=== PATIENT | male | born 1935 | race Caucasian/White ===

== ENCOUNTER 2017-01-09 02:29 | Emergency (ER) | payer OTHER, MEDICARE ==
[~2017-01-09] VITALS: Ht 172.7 cm; Wt 87.5 kg
[~2017-01-09 02:29] MED LIST: ASPIR 8181 MG PO; AVODART0.5 MG PO; COENZYME Q10 50 MG PO; FISH OIL CONC1000 MG PO; FLOMAX(MONOGRA0.4 MG PO; LIPITOR 40MG40 MG PO; LISINOPRIL30 MG PO; METFORMIN HYD1000 MG PO; PANTOPRAZOLE SO40 MG PO; TENORMIN 50MG T50 MG PO; VITAMIN B COMPL1 CAP PO; VITAMIN B121000 MCG PO; VITAMIN D31000 IU; ZETIA10 MG PO
--- NOTE | 2017-01-09 02:44 | ED GI/GU/ABDOMINAL COMPLAINT ---
History of Present Illness General Chief Complaint: Abdominal Pain/Flank Pain Stated Complaint: ABD PAIN,DIARRHEA Source: patient, family, old records Exam Limitations: no limitations Vital Signs & Intake/Output Vital Signs & Intake/Output Vital Signs Date Time Temp Pulse Resp B/P B/P Pulse O2 O2 Flow FiO2 Mean Ox Delivery Rate 01/09 0239 96.2 77 18 147/69 97 Room Air Allergies Coded Allergies: No Known Allergies (01/09/17) Reconcile Medications Aspirin (Ecotrin) 81 MG TABLET.DR 1 TAB PO DAILY HEART HEALTH (Reported) Atenolol (Tenormin 50MG Tab) 50 MG TABLET 0.5 TAB PO BID HEART (Reported) Atorvastatin (Atorvastatin Calcium) 20 MG TABLET 1 TAB PO DAILY CHOLESTEROL ( Reported) Cholecalciferol (Vitamin D3) (Unknown Strength) TAB (Unknown Dose) DAILY SUPPLEMENT (Reported) Coenzyme Q10/Vitamin E (Co-Q-10 50 MG-1 Iu) 1 SGL SGL 3 SGL PO QAM SUPPLEMENT (Reported) Cyanocobalamin (Vitamin B12) (Unknown Strength) TAB (Unknown Dose) PO ONCE A WEEK SUPPLEMENT (Reported) Dutasteride (Avodart) 0.5 MG CAPSULE 1 CAP PO QPM PROSTATE (Reported) Ezetimibe (Zetia) 10 MG TAB 1 TAB PO QAM CHOLESTEROL (Reported) Fish Oil (Fish Oil Concentrate) 1,000 MG SGL 1 SGL PO BID SUPPLEMENT ( Reported) Lisinopril 30 MG TAB 1 TAB PO DAILY BP (Reported) METFORMIN HCL (Metformin Hydrochloride) 1,000 MG TABLET 1 TAB PO BID DIABETES (Reported) Pantoprazole Sodium 40 MG TABLET.DR 1 TAB PO DAILY AC BARRETTS (Reported) Tamsulosin Hydrochloride (Flomax) 0.4 MG CAP.ER.24H 1 CAP PO QPM PROSTATE ( Reported) Vitamin B Complex 1 EACH CAPSULE 1 CAP PO DAILY SUPPLEMENT (Reported) Triage Note: TRIAGE: PATIENT REPORTS "UNCONTROLLED DIARRHEA SINCE SATURDAY, WORST LAST NIGHT." REPORTS TAKING LOMOTIL W/O RELIEF, DENIES TAKING ABX RECENTLY. DENIES N/V/D/ABD PAIN. REPORTING GOOD APPETITE. Triage Nurses Notes Reviewed? yes HPI: Patient states that he has been having diarrhea since Saturday night. Patient states he is on multiple times. Patient states that he gets the urge to go and only a little bit comes out. There is been no blood in his stool. There is no abdominal pain or abdominal cramping. There is no nausea or vomiting. He has not been on antibiotics recently. There are no fevers or chills. Patient states that he took Lomotil and Imodium without relief. Past History Travel History Traveled to [place] past 21 day No Medical History Any Pertinent Medical History? see below for history Neurological: NONE EENT: NONE Cardiovascular: CAD, hypertension, hyperlipidemia Respiratory: NONE Gastrointestinal: GERD, BARRETS SYNDROME Hepatic: NONE Renal: NONE Musculoskeletal: NONE Psychiatric: NONE Endocrine: diabetes Blood Disorders: NONE Cancer(s): NONE INCIDENT RESPONSE ENGINEER/Reproductive: ENLARGED PROSTATE Surgical History Surgical History: CABG Psychosocial History What is your primary language [place]an Tobacco Use: Quit >30 days ago ETOH Use: denies use Illicit Drug Use: denies illicit drug use Family History Hx Contributory? No Review of Systems Review of Systems Constitutional: Reports: no symptoms. EENTM: Reports: no symptoms. Respiratory: Reports: no symptoms. Cardiovascular: Reports: no symptoms. GI: Reports: see HPI, diarrhea. Genitourinary: Reports: no symptoms. Musculoskeletal: Reports: no symptoms. Skin: Reports: no symptoms. Neurological/Psychological: Reports: no symptoms. Hematologic/Endocrine: Reports: no symptoms. Immunologic/Allergic: Reports: no symptoms. All Other Systems: Reviewed and Negative Physical Exam Physical Exam General Appearance: well developed/nourished, alert, awake, anxious, mild distress Head: atraumatic, normal appearance Eyes: Bilateral: PERRL, EOMI. Ears, Nose, Throat, Mouth: hearing grossly normal, DRY MUCOSA Neck: normal inspection, supple, full range of motion Respiratory: normal breath sounds, chest non-tender, no respiratory distress, lungs clear Cardiovascular: regular rate/rhythm, normal peripheral pulses Gastrointestinal: normal bowel sounds, soft, non-tender, no organomegaly Back: normal inspection Extremities: normal range of motion Neurologic/Psych: no motor/sensory deficits, awake, alert, oriented x 3, normal mood/affect Skin: intact, normal color, warm/dry Core Measures ACS in differential dx? No Severe Sepsis Present: No Septic Shock Present: No Progress Differential Diagnosis: diverticulitis, C.DIFF, COLITIS, DIARRHEA Plan of Care: Orders Procedure Date/time Status C.DIFFICILE 01/10 244 Active COMPREHENSIVE METABOLIC PANEL 01/10 244 Complete CBC WITHOUT DIFFERENTIAL 01/10 244 Complete Laboratory Tests 01/09/17 0250: Anion Gap 13, Estimated GFR > 60, BUN/Creatinine Ratio 22.2, Glucose 112 H, Calcium 8.7, Total Bilirubin 0.4, AST 31, ALT 42, Alkaline Phosphatase 46, Total Protein 6.7, Albumin 3.9, Globulin 2.8, Albumin/Globulin Ratio 1.4, CBC w Diff NO MAN DIFF REQ, RBC 4.19 L, MCV 96.4 H, MCH 31.5 H, RDW 13.0, MPV 8.1, Gran % 54.2, Lymphocytes % 29.5, Monocytes % 11.1 H, Eosinophils % 4.7, Basophils % 0.5, Absolute Granulocytes 5.2, Absolute Lymphocytes 2.8, Absolute Monocytes 1.1 H, Absolute Eosinophils 0.5, Absolute Basophils 0, PUBS MCHC 32.7 L Microbiology 01/09 0244 STOOL: Clostridium difficile Toxin A & B - ORD Diagnostic Imaging: Viewed by Me: CT Scan. Discussed w/RAD: CT Scan. Radiology Impression: PATIENT: KATIE ASHLEY PRESENT AGE: 81 PATIENT ACCOUNT NO: [id number] : 35 LOCATION: [facility] ([facility] ORDERING PHYSICIAN: REANNA TILLMAN MD SERVICE DATE: 01/09/17 EXAM TYPE: CAT - CT ABD & PELVIS W IV CONTRAST EXAMINATION: CT ABDOMEN AND PELVIS WITH CONTRAST CLINICAL INFORMATION: Area COMPARISON: None TECHNIQUE: Multidetector volumetric imaging was performed of the abdomen and pelvis after the IV administration of 95 mL of Optiray 320 intravenous contrast. Sagittal and coronal reformatted images were obtained on the technologist's workstation. DLP: 456 mGy-cm FINDINGS: LUNG BASES: The lung bases are clear. Coronary artery calcifications are present. LIVER, GALLBLADDER, AND BILIARY TREE: The liver is normal in size, shape, and attenuation. No focal hepatic lesion or biliary ductal dilatation is present. The gallbladder is unremarkable with no evidence of radiopaque gallstones, gallbladder wall thickening, or obvious pericholecystic inflammatory changes. PANCREAS: Unremarkable. SPLEEN: The spleen appears absent. ADRENAL GLANDS: Unremarkable. KIDNEYS AND URETERS: The kidneys are normal in size, shape, and attenuation. No hydronephrosis, hydroureter, or calculi seen. Bilateral symmetric perinephric stranding. 3.3 cm left midpole simple cyst. 1.7 cm right lower pole simple cyst. BLADDER: Unremarkable. GASTROINTESTINAL TRACT: The stomach and small bowel are unremarkable. No dilated loops of bowel or evidence of obstruction. Although the appendix is prominent, measuring 0.9 cm in diameter, there is no inflammatory change. Gas is seen at the tip of the appendix. There is colonic diverticulosis. Mild adjacent inflammation seen at the sigmoid colon most suggestive of mild diverticulitis. No free air or fluid collection. ABDOMINAL WALL: Fat-containing left inguinal hernia. LYMPH NODES: Normal. VASCULAR: Moderate atherosclerotic calcifications. PELVIC VISCERA: The prostate and seminal vesicles are unremarkable. OSSEOUS STRUCTURES: No acute or suspicious osseous abnormality. Multilevel degenerative changes of the spine. IMPRESSION: Colonic diverticulosis with faint inflammatory changes, suggestive of diverticulitis. Bilateral renal cysts. DICTATED BY: NIKUNJ PEARL MD DATE/TIME DICTATED:01/09/17432 [employer] INFORMATION CLERK: EVELINE DATE/TIME TRANSCRIBED:01/09/17432 CONFIDENTIAL, DO NOT COPY WITHOUT APPROPRIATE AUTHORIZATION. <Electronically signed in Other Vendor System> SIGNED BY: NIKUNJ PEARL MD 01/09/17438 Initial ED EKG: none Comments: Patient is feeling much better. There is no tenderness in the left lower quadrant. There is no elevation in the white blood cell count. I really doubt diverticulitis. Patient will follow-up. Departure Departure Disposition: HOME OR SELF CARE Condition: Stable Clinical Impression Primary Impression: Diarrhea Qualifiers: Diarrhea type: unspecified type Qualified Code: R19.7 - Diarrhea, unspecified Referrals: HAKEEM ALEXANDRA MD (PCP/Family) Additional Instructions: Do not take your metformin for [address] Alexandra about when year can resume it. Return if symptoms worsen or for any concerns. Departure Forms: Customer Survey General Discharge Information
[2017-01-09 02:58] LABS: ABSOLUTE BASOPHIL COUNT 0 /CUMM (0.0-0.2); ABSOLUTE EOSINOPHIL COUNT 0.5 /CUMM (0.0-0.7); ABSOLUTE GRANULOCYTE CT 5.2 /CUMM (1.4-6.5); ABSOLUTE LYMPH COUNT 2.8 /CUMM (1.2-3.4); ABSOLUTE MONOCYTE COUNT 1.1 /CUMM (0.10-0.60); BASOPHIL % 0.5 % (0.0-2.0); EOSINOPHIL % 4.7 % (0-5); GRANULOCYTE % 54.2 % (42.2-75.2); HEMATOCRIT 40.4 % (42-52); MEAN CORPUSCULAR HGB 31.5 PG (27.0-31.0); MEAN CORPUSCULAR HGB CONC 32.7 G/DL (33.0-37.0); MEAN CORPUSCULAR VOLUME 96.4 FL (80.0-94.0); MEAN PLATELET VOLUME 8.1 FL (7.4-10.4); PLATELET COUNT 391 /CUMM (130-400); RED BLOOD CELL CT 4.19 /CUMM (4.70-6.10); WHITE BLOOD CELL COUNT 9.6 /CUMM (4.8-10.8)
--- NOTE | 2017-01-09 04:39 | CT SCAN REPORT ---
EXAMINATION: CT ABDOMEN AND PELVIS WITH CONTRAST CLINICAL INFORMATION: Area COMPARISON: None TECHNIQUE: Multidetector volumetric imaging was performed of the abdomen and pelvis after the IV administration of 95 mL of Optiray 320 intravenous contrast. Sagittal and coronal reformatted images were obtained on the technologist's workstation. DLP: 456 mGy-cm FINDINGS: LUNG BASES: The lung bases are clear. Coronary artery calcifications are present. LIVER, GALLBLADDER, AND BILIARY TREE: The liver is normal in size, shape, and attenuation. No focal hepatic lesion or biliary ductal dilatation is present. The gallbladder is unremarkable with no evidence of radiopaque gallstones, gallbladder wall thickening, or obvious pericholecystic inflammatory changes. PANCREAS: Unremarkable. SPLEEN: The spleen appears absent. ADRENAL GLANDS: Unremarkable. KIDNEYS AND URETERS: The kidneys are normal in size, shape, and attenuation. No hydronephrosis, hydroureter, or calculi seen. Bilateral symmetric perinephric stranding. 3.3 cm left midpole simple cyst. 1.7 cm right lower pole simple cyst. BLADDER: Unremarkable. GASTROINTESTINAL TRACT: The stomach and small bowel are unremarkable. No dilated loops of bowel or evidence of obstruction. Although the appendix is prominent, measuring 0.9 cm in diameter, there is no inflammatory change. Gas is seen at the tip of the appendix. There is colonic diverticulosis. Mild adjacent inflammation seen at the sigmoid colon most suggestive of mild diverticulitis. No free air or fluid collection. ABDOMINAL WALL: Fat-containing left inguinal hernia. LYMPH NODES: Normal. VASCULAR: Moderate atherosclerotic calcifications. PELVIC VISCERA: The prostate and seminal vesicles are unremarkable. OSSEOUS STRUCTURES: No acute or suspicious osseous abnormality. Multilevel degenerative changes of the spine. IMPRESSION: Colonic diverticulosis with faint inflammatory changes, suggestive of diverticulitis. Bilateral renal cysts.
[2017-01-09 05:04] VITALS: BP 151/65
== END 2017-01-09 05:09 ==
LOC: ERH 02:29
PROVIDERS: Emergency Medicine
DX: R19.7 Diarrhea, unspecified (principal)
CPT/HCPCS: 74177; 87045; 96360; 96361